=== PATIENT | male | born 1945 | race Caucasian/White ===

== ENCOUNTER → 2019-09-24 11:00 | Outpatient (BNVA) | payer MEDICARE, SELFPAY | PROVIDERS: Family Provider Nurse Practitioner Family; PCP Nurse Practitioner Family; Visit Provider Nurse Practitioner Family | DX: E11.9 Type 2 diabetes mellitus without complications (principal) | CPT/HCPCS: 80053; 81001; 83036; 85025 ==

== ENCOUNTER → 2019-12-03 11:15 | Outpatient (BNVA) | payer MEDICARE, SELFPAY | PROVIDERS: Family Provider Nurse Practitioner Family; PCP Nurse Practitioner Family; Visit Provider Nurse Practitioner Family | DX: M25.569 Pain in unspecified knee (principal); E11.9 Type 2 diabetes mellitus without complications; I10 Essential (primary) hypertension; M19.90 Unspecified osteoarthritis, unspecified site | CPT/HCPCS: 73502; 73560; 80053; 81001; 84550; 85025; 85651; 86140 ==

== ENCOUNTER 2019-12-09 12:01 | Outpatient (CLI) | payer MEDICARE, SELFPAY ==
--- NOTE | 2019-12-09 12:54 | XR_ITS ---
WS: [id number] THORACIC SPINE TECHNIQUE: 3 views of the thoracic spine CLINICAL INFORMATION: thoracic spine pain COMPARISON: None. FINDINGS: Minimal thoracic curve. Moderate thoracic kyphosis. Hypertrophic changes thoracic spine with chronic anterior wedging in the mid thoracic spine. Moderate spondylitic changes. Disc space heights are rela tively well-preserved. Mild disc space narrowing in the lower thoracic spine. Moderate spondylitic ch anges cervical spine worse at C5-C7. XR/XR thoracic spine 3V* [id number] IMPRESSION: 1. Moderate thoracic kyphosis with chronic appearing anterior wedging in the m id thoracic spine. 2. Mild disc space narrowing worse in the lower thoracic spine. 3. Moderate spondylitic changes cervical spine worse at C5-C7.
--- NOTE | 2019-12-09 12:54 | XR_ITS ---
WS: [id number] LUMBAR SPINE TECHNIQUE: 3 views of the lumbar spine CLINICAL INFORMATION: lumbar strain COMPARISON: None. FINDINGS: Five [id number] lumbar vertebral bodies. Mild lumbar curve convex left. Slight anterolisthesis L 3 on L4. Aortic calcification. Mild facet arthropathy L5-S1. Disc space heights are well preserved. N o compression fractures. Visualized sacroiliac joints are normal. Normal visualized soft tissues. Par tially visualized bowel gas pattern is normal. XR/XR lumbar spine 2-3V* [id number] IMPRESSION: 1. Mild lumbar curve convex left. 2. No acute appearing compression fractures. 3. Trace anterolisthesis L3 on L4. 4. Disc space heights and and vertebral body heights well-preserved.
--- NOTE | 2019-12-09 12:54 | XR_ITS ---
WS: [id number] RIBS RIGHT TECHNIQUE: 3 views of the right ribs CLINICAL INFORMATION: rib pain COMPARISON: None. FINDINGS: Moderate degenerative arthritis at the AC joint with hypertrophic changes. Calcific tendinitis involv ing the supraspinatus insertion. Rotator cuff arthropathy. Right ribs appear normal. XR/XR ribs RT 2V* [id number] IMPRESSION: 1. Moderate hypertrophic changes the AC joint with rotator cuff arthropathy. 2. Calcific tendinitis involving the supraspinatus insertion. 3. No visualized right rib fractures.
== END 2019-12-09 12:02 | disposition home or self-care (01) ==
PROVIDERS: Family Provider Nurse Practitioner Family; PCP Nurse Practitioner Family; Visit Provider Nurse Practitioner Family
DX: S39.012A Strain of muscle, fascia and tendon of lower back, initial encounter (principal); R07.81 Pleurodynia; M54.6 Pain in thoracic spine; M40.204 Unspecified kyphosis, thoracic region; M48.54XA Collapsed vertebra, not elsewhere classified, thoracic region, initial encounter for fracture; M48.04 Spinal stenosis, thoracic region; X58.XXXA Exposure to other specified factors, initial encounter; M12.811 Other specific arthropathies, not elsewhere classified, right shoulder; M75.31 Calcific tendinitis of right shoulder
CPT/HCPCS: 71100; 72072; 72100

== ENCOUNTER → 2020-01-07 11:25 | Outpatient (BNVA) | payer MEDICARE, SELFPAY | PROVIDERS: Family Provider Nurse Practitioner Family; PCP Nurse Practitioner Family; Referring Provider Nurse Practitioner Family; Visit Provider Orthopaedic Surgery | DX: M25.562 Pain in left knee (principal); M25.462 Effusion, left knee | CPT/HCPCS: 73560; 73565 ==

== ENCOUNTER → 2020-02-08 09:23 | Outpatient (BNVA) | payer MEDICARE, SELFPAY | PROVIDERS: Family Provider Nurse Practitioner Family; PCP Nurse Practitioner Family; Visit Provider Nurse Practitioner Family | DX: E11.9 Type 2 diabetes mellitus without complications (principal); I10 Essential (primary) hypertension; Z79.899 Other long term (current) drug therapy; E55.9 Vitamin D deficiency, unspecified; Z09 Encounter for follow-up examination after completed treatment for conditions other than malignant neoplasm; R55 Syncope and collapse; I48.91 Unspecified atrial fibrillation | CPT/HCPCS: 36415; 80053; 81001; 82306; 83036; 84443; 85025 ==

== ENCOUNTER 2020-03-06 09:21 | Outpatient (CLI) | payer MEDICARE, SELFPAY ==
--- NOTE | 2020-03-06 09:30 | USCV_ITS ---
Darnell Hassan Age: 74 Gender: M : 1945 Exam Date: 03/06/2020 09:44 Ordering Phys: Ben Zheng MD ([email or web address]) Technologist: Rochelle Olivares Exam Location: [facility] [place] Indication: SYNCOPE WITH COLLAPSE BP: / HR: 58 Rhythm: Atrial fibrillation Technical Quality: Adequate MEASUREMENTS (Male / Female) Normal Values 2D ECHO LV Diastolic Diameter PLAX 4.9 cm 4.2 - 5.9 / 3.9 - 5.3 cm LV Systolic Diameter PLAX 3.1 cm LV Chamber Size 4.6 cm IVS Diastolic Thickness 1.2 cm 0.6 - 1.0 / 0.6 - 0.9 cm IVS Systolic Thickness 1.4 cm LVPW Diastolic Thickness 1.1 cm 0.6 - 1.0 / 0.6 - 0.9 cm LVPW Systolic Thickness 1.4 cm RV Chamber Size 3.7 cm LVOT Diameter 2.1 cm LV Ejection Fraction 2D Teich 65.9 % LV Ejection Fraction MOD 2C 52.8 % LV Ejection Fraction 2C AL 51.8 % LA Diameter 5.0 cm LA Width 4.0 cm LA Height 5.0 cm RA Width 4.3 cm RA Height 5.5 cm Aorta at Sinotubular Diameter 3.1 cm M-MODE LV Diastolic Diameter MM 5.2 cm 4.2 - 5.9 / 3.9 - 5.3 cm LV Systolic Diameter MM 4.2 cm LV Ejection Fraction MM Teich 39.2 % IVS Diastolic Thickness MM 0.9 cm 0.6 - 1.0 / 0.6 - 0.9 cm IVS Systolic Thickness MM 1.5 cm LVPW Diastolic Thickness MM 1.1 cm 0.6 - 1.0 / 0.6 - 0.9 cm LVPW Systolic Thickness MM 1.6 cm RV Diastolic Diameter MM 2.2 cm Aortic Annulus Diameter 3.9 cm LA Ao Ratio MM 1.3 MV E Point Septal Separation 0.8 cm DOPPLER AV Peak Velocity 120.0 cm/s LVOT Peak Velocity 67.0 cm/s AV Area Cont Eq vti 1.7 cm squared AV Area Cont Eq pk 1.9 cm squared MV Area PHT 4.3 cm squared MV E' Velocity 12.0 cm/s Mitral E to MV E' Ratio 8.4 Mitral E to LV E' Lateral Ratio 8.7 Mitral E to LV E' Septal Ratio 8.1 TR Peak Velocity 232.6 cm/s TR Peak Gradient 21.6 mmHg TR Mean Velocity 174.5 cm/s TR Mean Gradient 13.5 mmHg TR Velocity Time Integral 80.7 cm Right Atrial Pressure 3.0 mmHg Pulmonary Artery Systolic Pressu 24.6 mmHg PV Peak Velocity 63.0 cm/s RV Acceleration Time 0.1 s RV Ejection Time 0.3 s RV AcT/ET 0.4 FINDINGS Left Ventricle Mildly increased left ventricular cavity size. Moderately decreased left ventricular systolic function. Left ventricular ejection fraction is estimated at 40 %. Global left ventricular hypokinesis. Right Ventricle The right ventricle is normal in size and function. Right Atrium The right atrium is normal in size. Left Atrium The left atrium is normal in size. Mitral Valve Mildly thickened mitral valve. No mitral valve stenosis. Mild- moderate mitral valve regurgitation. Aortic Valve Moderate aortic valve calcification. No aortic valve stenosis. No aortic valve regurgitation. Tricuspid Valve Thickened tricuspid valve. No tricuspid valve stenosis. Mild tricuspid valve regurgitation. Pulmonic Valve Structurally normal pulmonic valve without significant stenosis. There is no pulmonic regurgitation. Pericardium Normal pericardium without effusion. Aorta Normal ascending aorta dimension. CONCLUSIONS 1-Mildly increased left ventricular cavity size. Moderately decreased left ventricular systolic function. Left ventricular ejection fraction is estimated at 40 %. Global left ventricular hypokinesis. 2-Mildly thickened mitral valve. No mitral valve stenosis. Mild- moderate mitral valve regurgitation. 3-Moderate aortic valve calcification. No aortic valve stenosis. No aortic valve regurgitation. 4-Thickened tricuspid valve. No tricuspid valve stenosis. Mild tricuspid valve regurgitation. 5-There is no pericardial effusion. 6-Pulmonary artery systolic pressure is within normal limits. 7-Right atrial pressure is around 5 mm of mercury. 8-When compared to the prior echocardiogram dated 06/05/2018 there is worsening of left ventricle ejection fraction from normal 60% to moderately reduced 40% . Ben Zheng MD (Electronically Signed) Final Date: 06 March 2020 23:28 S
== END 2020-03-06 09:22 | disposition home or self-care (01) ==
LOC: RAD 09:27
PROVIDERS: PCP Nurse Practitioner Family; Visit Provider Internal Medicine Cardiovascular Disease
DX: R55 Syncope and collapse (principal); I08.3 Combined rheumatic disorders of mitral, aortic and tricuspid valves
CPT/HCPCS: 93306

== ENCOUNTER 2020-03-10 07:46 | Outpatient (CLI) | payer MEDICARE, SELFPAY ==
--- NOTE | 2020-03-10 07:58 | CT_ITS ---
WS: [id number] CT CHEST, ABDOMEN, AND PELVIS TECHNIQUE: Contrast-enhanced CT of the chest, abdomen, and pelvis with coronal and sagittal reformatt ed images. CLINICAL INFORMATION: COLON CANCER. History of right hemicolectomy. COMPARISON: CT chest abdomen pelvis November 12, 2018 and . and . DLP: 1901.[address] scans at [facility] use at least one of these dose optimization techniques: automat ed exposure control; mA and/or kV adjustment per patient size (includes targeted exams where dose is matched to clinical indication); or iterative reconstruction. CT CHEST: Mild chronic emphysematous changes. A few small noncalcified opacities in the right upper lobe and ri ght middle lobe unchanged since 2019. 6 mm noncalcified nodules in the super segment left lower lobe are unchanged. No evidence of new or suspicious pulmonary parenchymal opacities. No mediastinal or hilar lymphadenopathy. Moderate chronic emphysematous changes. No axillary lymphade nopathy. Normal caliber thoracic aorta. Proximal main pulmonary arteries are normal. CT ABDOMEN AND PELVIS: Prior postoperative changes right hemicolectomy. This is stable in appearance compared to the prior e xaminations. No evidence of residual or recurrent disease. No periaortic or pelvic lymphadenopathy. Portal veins are patent. Splenic vein is patent. Cholelithiasis. No significant gallbladder wall thic kening. Fatty atrophy of the pancreas. Adrenal glands are normal. Normal renal parenchymal enhancemen t. Tiny right renal cyst. No hydronephrosis. Small splenule. No perirectal lymphadenopathy. No pelvic lymphadenopathy. Markedly heterogeneous prostate enlargement measuring 6.2 x 7.8 cm suspicious for n eoplasia. Evidence of prior TURP defect. Recommend correlation PSA. This is stable since 2019. CT/CT chest abd pel w con* IMPRESSION: 1. Prior postoperative changes right hemicolectomy. No evidence of recurrent d isease in the abdomen or pelvis. 2. No adenopathy in the abdomen or pelvis. 3. Markedly enlarged prostate with heterogeneous enhancement. This appears sim ilar to 2019. Recommend correlation PSA. 4. A few subcentimeter noncalcified pulmonary nodules described above unchange d in appearance. No new parenchymal opacities. 5. No mediastinal or hilar lymphadenopathy. 6. No evidence of progressed disease in the chest abdomen or pelvis.
[2020-03-10 08:13] LABS: Basophils # 0.1 10^3/uL (0.0-0.1); Basophils % 1.2 %; Eosinophils # 0.2 10^3/uL (0.0-0.8); Eosinophils % 2.6 %; Hematocrit 39.2 % (42.0-52.0); Hemoglobin 11.7 g/dL (11.7-16.6); Lymphocytes # 1.3 10^3/uL (0.8-4.8); Mean Corpuscular HGB Conc 29.8 g/dL (30.0-36.0); Mean Corpuscular Hemoglobin 27.5 pg (28.0-34.0); Mean Corpuscular Volume 92.2 fL (80-94); Mean Platelet Volume 10.7 fL (7.4-10.4); Monocytes # 0.8 10^3/uL (0.2-0.9); Monocytes % 8.8 %; Neutrophils # 6.14 10^3/uL (1.8-7.7); Neutrophils % 71.6 %; Nucleated Red Blood Cells % 0 %; Platelet Count 260 10^3/cmm (130-400); Red Blood Count 4.25 10^6/uL (4.1-5.3); Red Cell Distribution Width 13.5 % (12.1-15.1); White Blood Count 8.6 10^3/uL (4.0-10.0)
[2020-03-10 08:36] LABS: Carcinoembryonic Antigen 6.6 ng/mL (0.0-4.7)
[2020-03-10 08:47] LABS: Alanine Aminotransferase 13 U/L (0-41); Albumin Level 3.8 g/dL (3.5-5.2); Alkaline Phosphatase 82 IU/L (40-130); Anion Gap 14.3 (5-19); Aspartate Amino Transferase 17 U/L (0-40); Blood Urea Nitrogen 16 mg/dL (8-23); Calcium 8.5 mg/dL (8.5-10.5); Carbon Dioxide 23 mmol/L (22-29); Chloride 103 mmol/L (98-107); Globulin 3.6 g/dL (1.3-4.6); Glucose 150 mg/dL (65-115); Osmolality Calculated 281 mOsm/kg (285-295); Potassium 4.3 mmol/L (3.5-5.1); Sodium 136 mmol/L (136-145); Total Bilirubin 0.4 mg/dL (0.15-1.2); Total Protein 7.4 g/dL (6.6-8.7)
[2020-03-10] MEDS: iohexol 300 mg/mL 50 mL Btl PO (09:18)
[2020-03-10] MEDS: iohexol 300 mg/mL 100 mL Btl IV (09:18)
== END 2020-03-10 07:47 | disposition home or self-care (01) ==
LOC: US 07:46
PROVIDERS: PCP Nurse Practitioner Family; Visit Provider Internal Medicine Medical Oncology
DX: C18.9 Malignant neoplasm of colon, unspecified (principal); N40.0 Benign prostatic hyperplasia without lower urinary tract symptoms; R91.8 Other nonspecific abnormal finding of lung field
CPT/HCPCS: 36415; 71260; 74177; 80053; 82378; 85025

== ENCOUNTER 2020-03-15 13:08 | Outpatient (CLI) | payer MEDICARE, SELFPAY ==
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
== END 2020-03-15 13:09 | disposition home or self-care (01) ==
LOC: ONCMED 13:10
PROVIDERS: PCP Nurse Practitioner Family; Visit Provider Internal Medicine Medical Oncology
DX: Z08 Encounter for follow-up examination after completed treatment for malignant neoplasm (principal); Z85.038 Personal history of other malignant neoplasm of large intestine; Z90.49 Acquired absence of other specified parts of digestive tract; Z92.21 Personal history of antineoplastic chemotherapy
CPT/HCPCS: G0463

== ENCOUNTER 2020-04-06 09:00 | Observation (INO) | payer MEDICARE, SELFPAY ==
--- NOTE | 2020-04-03 06:56 | SUR.PREOP ---
PROCEDURE CANCELLED Patient took xarelto last evening. Dr Brian notified. Procedure cancelled today. Patient given updated medication instruction sheet and prep sheet. I will call with reschedule date/time when received. Patient verbalized understanding. Discharge in stable condition.
[2020-04-06] VITALS (7 sets, daily range): BP systolic 130–138; BP diastolic 68–93; PULSE 48–72; RESP 16–22; TEMP 36.8–36.9; O2SAT 95–99; BMI 26.7
--- NOTE | 2020-04-06 06:00 | XR_ITS ---
WS: [id number] Chest 2 views, 04/06/2020 Clinical Data: Surgical procedure, pacemaker insertion Comparison: None. Findings: No nodules, masses or effusions are seen. The heart is normal. The pulmonary vascularity is not increased. No pneumonia or pneumothorax is seen. The aortic arch and descending aorta show tortu osity. XR/XR chest 2V* [id number] Impression: Atherosclerosis.
[2020-04-06 06:45] LABS: Basophils # 0.1 10^3/uL (0.0-0.1); Eosinophils # 0.2 10^3/uL (0.0-0.8); Eosinophils % 2.7 %; Hematocrit 36.3 % (42.0-52.0); Hemoglobin 11.8 g/dL (11.7-16.6); Lymphocytes # 1.1 10^3/uL (0.8-4.8); Lymphocytes % 16.5 %; Mean Corpuscular HGB Conc 32.5 g/dL (30.0-36.0); Mean Platelet Volume 10.9 fL (7.4-10.4); Monocytes # 0.7 10^3/uL (0.2-0.9); Monocytes % 10.2 %; Neutrophils # 4.78 10^3/uL (1.8-7.7); Nucleated Red Blood Cells % 0 %; Platelet Count 247 10^3/cmm (130-400); Red Blood Count 4.22 10^6/uL (4.1-5.3); White Blood Count 6.9 10^3/uL (4.0-10.0)
--- NOTE | 2020-04-06 07:03 | W.PM.OPSUD ---
Surgery/Procedure H&P Update DATE OF PROCEDURE: April 06, 2020 DATE H&P PERFORMED: 03/28/20 H&P UPDATE INFORMATION: I have reviewed H&P completed within last 30 days, I have examined patient prior to procedure and No changes to prior documentation PREOP DIAGNOSIS: Atrial fibrillation/symptomatic bradycardia PLANNED PROCEDURE: Operation Date: 04/06/20 07:00 Proposed Procedures p Pacemaker Insertion(Not Applicable) - Merle Brian MD PATIENT REASSESSED PRIOR TO SEDATION, WITH NO CHANGE NOTED: Yes PHYSICAL EXAM: alert, oriented x 3, clear to auscultation bilaterally and regular rate & rhythm (Irregularly irregular heartbeat) AIRWAY EVAL/ANESTHESIA PLAN: normal airway, see other exam findings, ASA III, Risks, benefits & alternatives of sedation and/or procedure discussed and Patient agrees to continue as planned
[2020-04-06 07:04] LABS: Anion Gap 13.3 (5-19); Blood Urea Nitrogen 17 mg/dL (8-23); Calcium 9.3 mg/dL (8.5-10.5); Carbon Dioxide 26 mmol/L (22-29); Chloride 104 mmol/L (98-107); Glucose 165 mg/dL (65-115); Osmolality Calculated 288 mOsm/kg (285-295); Potassium 4.3 mmol/L (3.5-5.1); Sodium 139 mmol/L (136-145)
--- NOTE | 2020-04-06 08:32 | XR_ITS ---
WS: [id number] Portable AP upright chest, 04/06/2020, 0846 hours Clinical Data: Confirm the lead position and rule out pneumothorax Comparison: PA and lateral chest, 04/06/2020, 0619 hours Findings: There is a single lead pacemaker with the wire ending in the region the right ventricle. Th e pacemaker generator is overlying the left axilla. The pulmonary vascularity is not increased. No pn eumonia or pneumothorax is seen. XR/XR chest 1V portable [id number] Impression: Satisfactory placement of left pacemaker generator without pneumothorax.
--- NOTE | 2020-04-06 08:33 | P.OP_ITS ---
Operative Report Date of procedure: April 06, 2020 Pre-op Diagnosis: Atrial fibrillation/symptomatic bradycardia Procedure: LOCATION: Outpatient PREOPERATIVE DIAGNOSES: Symptomatic bradycardia/atrial fibrillation/ventricular arrhythmia. POSTOPERATIVE DIAGNOSES: Same. COMPLICATIONS: None. ESTIMATED BLOOD LOSS: Around 5 milliliters. BRIEF HISTORY: This is a 74-year-old white male with a history of atherosclerotic heart disease, chronic atrial fibrillation, presented with complaints of syncope. He was found to have symptomatic bradycardia and pauses of 3 seconds or more and heart rate in the 30s . He also had intermittent episodes of nonsustained ventricular tachycardia's. For further management of his condition, he requires a permanent pacemaker plantation. I was asked to perform this procedure by Dr. Zheng A single-chamber permanent pacemaker implantation was recommended for further management of his condition. The procedure was explained to the patient in detail with the risks and benefits. The risks of bleeding, hematoma, vascular injury, infection, pneumothorax, myocardial perforation and other concomitant complications were explained in detail, which the patient understood well and consented to proceed. PROCEDURE DESCRIPTION: The patient was brought to the Cardiac Catheterization Lab. The left and the right side of the neck and the subclavian area were cleaned and draped in a sterile fashion. 1% Xylocaine was used as the local anesthetic agent. A left subclavian venous access was obtained using a micropuncture needle system. Under venographic guidance, the patient was injected with 20 milliliters of Omnipaque through the left antecubital vein. A two-inch long incision was made 2.0 centimeters below the midclavicular region. By sharp and blunt dissection, a pacemaker pocket was made. Over the first guidewire, a 7-Syriac venous sheath with dilator was advanced. The venous dilator and the guidewire were taken out. A screw-in ventricular lead was advanced through the venous sheath and was positioned towards the right ventricle. Under fluoroscopy guidance, the ventricular lead was positioned toward the right ventricular apex. Good pacing and sensing thresholds were obtained. The lead was secured to the endocardium by advancing the helix. The stability of the lead was tested by gentle twisting movements and also by asking the patient to take some deep breaths and cough. The venous sheath was peeled off, at this time. The lead was secured to the pectoralis fascia, by suturing with 1-0 Surgilon. The pacemaker pocket was copiously irrigated with vancomycin solution. Complete hemostasis was achieved. Sponge counts were confirmed. The lead was attached to a Medtronic generator. The leads were positioned behind the generator and the generator was attached to the pectoralis fascia by suturing with 0-Surgilon. The pocket was closed in layers. Skin was approximated using 4- 0 Vicryl. IMPLANTED DEVICES: VENTRICULAR LEAD: Model number: 50 76/58 Serial number: [id number] Make: [employer] (ABAM) GENERATOR Brand: [employer]born XT SR MRI SureScan Model number: [id number] Serial number: [id number] Make: Medtronic IMPLANTATION DATA: With the pacing system analyzer, the R wave sensing was 6.8 millivolts with a lead impedance of 741 ohms and a pacing threshold was 0.75 volts at 0.4 milliseconds. Through the device, the R-wave sensing was 7.1 millivolts with a lead impedance of 684 ohms and a pacing threshold was 0.75 volts at 0.4 milliseconds. The pacemaker was set for VVIR mode with upper rate of 70 and a lower rate of 130. A pressure dressing was applied over the pacemaker site. The patient was transferred to the Medical Floor in stable condition. A chest x-ray was ordered to confirm the lead position and also to rule out any pneumothorax.
[2020-04-06] MEDS: hydroCHLOROthiazide 25 mg Tablet PO (09:50)
[2020-04-06] MEDS: oxyCODONE-APAP 5-325 mg Tablet 1 TAB PO ×2 (09:50→20:10)
[2020-04-06] MEDS: sitagliptin 100 mg Tablet PO (09:51)
[2020-04-06] MEDS: metoprolol tartrate 25 mg Tablet PO ×2 (09:51→17:23)
--- NOTE | 2020-04-06 09:59 | XR_ITS ---
WS: [id number] Portable AP upright chest, 04/06/2020, 1022 hours Clinical Data: post pacemaker placement Comparison: Portable chest, 04/06/2020, 0846 hours, Findings: The permanent pacemaker remains in the same position. No pneumothorax is noted. The pulmona ry vascularity is not increased. No pneumonia is seen. XR/XR chest 1V portable [id number] Impression: Satisfactory placement of pacemaker.
--- NOTE | 2020-04-06 10:01 | PC.NURSE ---
Patient had noted pauses on tele monitor patient is asymptomatic Dr. Brian notified instructions given to fax tele recordings to his office and get a stat chest xray
[2020-04-06 10:45] LABS: Glucose Point of Care 249 mg/dL (70-110)
--- NOTE | 2020-04-06 11:29 | PC.CHAP ---
Pastoral Care Encounter/Spiritual Assessment Type of Contact [] Declined engineering job titles visit [] Patient/Family/Request visit [] Outpatient visit [] Follow-up visit [] Physician referral [] Code/Alert [x] Routine visit [] Staff referral [] Actively dying [] Patient sleeping [] Family support [] [] Out of room [] Palliative care [] [] Receiving care in room [] Pre-surgical visit [] Trauma [] Long length of stay [] ICU visit [] Other: Relational/Emotional Strength [x] Patient feels connected with others/family/visitors/staff [] Distress [] Loneliness/isolation [] Abandonment Spirituality of Patient [x] Person of [place] [x] Attends Congregational of their [place] [x] Believes in Prayer [x] Reads Bible or Hinduism materials [] There are Spiritual issues to be addressed Writer Editor Interventions [x] Prayer [x] Active listening [x] Non-anxious presence [x] Spiritual/emotional support [] Crisis/trauma care [] Spiritual counseling [] Bereavement support [] Provided bereavement packet [] Provided Bible/devotional materials [] Provided toy/stuffed animal, coloring book to patient or family member [] Provided Communion [] Anointing/[place] [] Salvation [x] Completed spiritual assessment [] Other: Impact on Illness or Injury [] Angry [] Fearful [] Anxious [] Often cries [] Exhaustion [] Unable to work [] Unable to attend protestant [] Unable to walk/stand [] Unable to read [] Unable to drive [] Unable to eat/drink [] Unable to sleep [] Unable to be with family [] Patient intubated [x] Other: Summary Patient expressed that he is strong in his victoria and commitment to the [place] [employer] [place] [employer]. Time spent with patient 15 minutes
[2020-04-06 17:08] LABS: Glucose Point of Care 241 mg/dL (70-110)
[2020-04-06] MEDS: sodium chloride 0.9% 1,000 ML 75 ML IV (22:01)
[2020-04-07 00:33] VITALS: BP 123/80; PULSE 70; RESP 24; TEMP 36.8; O2SAT 93
[2020-04-07 05:05] VITALS: BP 131/78; PULSE 70; RESP 22; TEMP 36.6; O2SAT 96
--- NOTE | 2020-04-07 06:00 | ECG_ITS ---
[facility] Test Date: 2020-04-07 Pat Name: Darnell Hassan Department: Room: 112 Gender: Male Back Sewer: juan pablo [place]: 1945 Requested By: Merle Brian Order Number: [id number] Traylor MD: Juana Ibarra M.D. Measurements Intervals [place] Rate: 72 P: NM: -1 QRS: -76 QRSD: 193 T: 88 QT: 483 QTc: 531 Interpretive Statements ELECTRONIC VENTRICULAR PACEMAKER ABNORMAL RHYTHM ECG Compared to ECG 02/24/2018 11:56:35 Atrial fibrillation no longer present Right bundle-branch block no longer present Electronically Signed On 04-07-2020 20:51:36 CDT by Juana Ibarra M.D. [id number]
[2020-04-07 08:37] VITALS: BP 135/72; PULSE 63; RESP 16; TEMP 36.4; O2SAT 97
[2020-04-07] MEDS: sitagliptin 100 mg Tablet PO (09:37)
[2020-04-07] MEDS: hydroCHLOROthiazide 25 mg Tablet PO (09:37)
[2020-04-07] MEDS: metoprolol tartrate 25 mg Tablet PO (09:37)
[2020-04-07] MEDS: atorvastatin 40 mg Tablet 20 MG PO (09:37)
--- NOTE | 2020-04-07 10:01 | PC.RESP ---
SMOKING CESSATION INFORMATION SENT TO PATIENT.
[2020-04-07 10:36] VITALS: BP 135/72; PULSE 63; RESP 16; TEMP 36.4; O2SAT 97
--- NOTE | 2020-04-07 10:47 | PM.PN ---
Subjective Subjective: Interval history: Patient underwent a permanent single-chamber pacemaker plantation yesterday. He had an uneventful postprocedure course. Patient is doing okay. No chest pain or shortness of breath. No fever or chills. He had a pacemaker interrogation today and was found to be functioning okay. The lead was positioned appropriately. Medications: Reviewed: Yes Medication Review Details: Current Medications Atorvastatin Calcium (Lipitor) 20 mg PO DAILY [facility] Last Admin: 04/07/20 09:37 Dose: 20 mg Documented by: Hydrochlorothiazide (Hctz) 25 mg PO DAILY [facility] Last Admin: 04/07/20 09:37 Dose: 25 mg Documented by: Sodium Chloride (Sodium Chloride 0.9%) 1,000 mls @ 75 mls/hr IV .[id number] [facility] Sodium Chloride (Sodium Chloride 0.9%) 1,000 mls @ 75 mls/hr IV .[id number] [facility] Last Admin: 04/07/20 09:36 Dose: Not Given Documented by: Metoprolol Tartrate (Lopressor) 25 mg PO BID [facility] Last Admin: 04/07/20 09:37 Dose: 25 mg Documented by: Non-Formulary Medication (Glipizide) 10 mg PO BID [facility] Oxycodone/Acetaminophen (Percocet 5-325 Mg) 1 tab PO Q4H PRN PRN Reason: MODERATE TO SEVERE PAIN Last Admin: 04/06/20 20:10 Dose: 1 tab Documented by: Sitagliptin Phosphate (Januvia) 100 mg PO DAILY [facility] Last Admin: 04/07/20 09:37 Dose: 100 mg Documented by: Vitals/I&O/Wt Last Vital Signs Temp 97.6 F 04/07/20 10:36 Pulse 63 04/07/20 10:36 Resp 16 04/07/20 10:36 BP 135/72 04/07/20 10:36 Pulse Ox 97 04/07/20 10:36 04/06/20 04/07/20 04/07/20 22:59 06:59 14:59 Intake Total 460 / 940 240 / 240 Output Total 400 / 1375 500 / 1875 275 / 275 Balance 60 / -435 -500 / -935 -35 / -35 Weight last 48 hrs Weight 213 lb 6.4 oz Weight 203 lb Physical Exam Narrative: EXAM NARRATIVE: GENERAL: The patient is alert and oriented times three. Not in any acute distress. HEENT: No significant pallor, icterus or lymphadenopathy.Oral cavity: There are no mucous membrane lesions. NECK: Trachea appears to be central. No masses noted. No JVD or thyromegaly appreciated. RESPIRATORY: The pacemaker site appears to have no hematoma or bleeding. Breath sounds are heard bilaterally with no rales or rhonchi. BREASTS: Deferred. HEART: The heart sounds are normal. No S3 or S4. No significant murmurs. No pericardial rub ABDOMEN: No vessel pulsations or distention. No tenderness. No organomegaly appreciated. Bowel sounds are normally heard. : Deferred. RECTAL: Deferred. LYMPHATIC: No lymphadenopathy noted in the neck or groin. EXTREMITIES: No edema or cyanosis. No clubbing. Peripheral pulses are palpated in fairly good volume and amplitude MUSCULOSKELETAL: No acute joint deformities or swelling SKIN: There are no significant rashes or ecchymosis NEUROPSYCHIATRIC: The patient is alert and oriented x3. Appears to be in a good mood. No tremors or rigidity noted. Data : 04/06/20 06:26 04/06/20 06:26 A&P Assessment and plan (1) Presence of permanent cardiac pacemaker: The pacemaker function appears to be appropriate. He will have a pacemaker interrogation next week in the office. He finished the IV antibiotics. Will discharge home today with p.o. antibiotics. Status: Acute (2) Atrial fibrillation: Patient will be restarted on Xarelto only tomorrow. May continue on the other medications as it is. Status: Acute Qualifiers: Atrial fibrillation type: unspecified Qualified Code(s): I48.91 - Unspecified atrial fibrillation (3) HTN (hypertension): Currently normotensive. Continue on the current medicines. Status: Acute Qualifiers: Hypertension type: unspecified Qualified Code(s): I10 - Essential (primary) hypertension Additional A&P Information Patient is being discharged home today. He will be seen next week in the office by the nurse practitioner. I may see him in the office in 1 month. We will keep his follow-up appointments with Dr. 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
--- NOTE | 2020-04-07 11:55 | PC.NURSE ---
10:50 Patient discharged home at this time patient given discharge instructions and home care for post pacemaker placement. Patient verbalized understanding as well as asked questions. Patient assisted to wheel chair and accompanied to private vehicle by staff. patient alert oriented and in stable condition with immobilizer in place.
== END 2020-04-07 10:50 | disposition home or self-care (01) ==
LOC: CSU 04-07 08:59
PROVIDERS: Admitting Provider Internal Medicine Cardiovascular Disease; PCP Nurse Practitioner Family; Visit Provider Internal Medicine Cardiovascular Disease
DX: R00.1 Bradycardia, unspecified (principal); I48.20 Chronic atrial fibrillation, unspecified; R00.0 Tachycardia, unspecified; R55 Syncope and collapse; I42.0 Dilated cardiomyopathy; I10 Essential (primary) hypertension; E11.9 Type 2 diabetes mellitus without complications; E78.5 Hyperlipidemia, unspecified; Z79.01 Long term (current) use of anticoagulants; Z79.84 Long term (current) use of oral hypoglycemic drugs
CPT/HCPCS: 12345; 33207; 36415; 36416; 71045; 71046; 80048; 82962; 85025; 85610; 93005; 96365; 97165; C1769; C1786; C1894; C1898; G0378; J0690; J2250; J3010; J3490; J7030; J7050; Q9967